=== PATIENT | male | born 1955 | race Caucasian/White ===

== ENCOUNTER 2018-01-02 19:54 | Inpatient (IN) | payer BC ==
[2018-01-02 21:24] LABS: ADD MAN DIFF? NO
[2018-01-02 21:25] LABS: ABNORMAL IP MESSAGE 1; BASOPHILS % 0.2 % (0.0-2.0); EOSINOPHILS # 0.4 10^3/ul (0.0-0.5); EOSINOPHILS % 1.8 % (0.0-7.0); HEMATOCRIT 24.5 % (42.0-52.0); HEMOGLOBIN 8.1 g/dl (14.0-18.0); LYMPHOCYTES # 1.2 10^3/ul (0.8-2.9); LYMPHOCYTES % 5.8 % (15.0-51.0); MEAN CORPUSCULAR HEMOGLOBIN 30.8 pg (29.0-33.0); MEAN CORPUSCULAR HGB CONC 33.1 g/dl (32.0-37.0); MEAN CORPUSCULAR VOLUME 93.2 fl (82.0-101.0); MEAN PLATELET VOLUME 9.2 fl (7.4-10.4); MONOCYTE # 2.1 10^3/ul (0.3-0.9); MONOCYTES % 10.3 % (0.0-11.0); NEUTROPHIL # 16.3 10^3/ul (1.6-7.5); NEUTROPHILS % 80.5 % (39.0-77.0); PLATELET COUNT 543 10^3/UL (140-415); POSITIVE DIFF @See below; RED BLOOD COUNT 2.63 10^6/ul (4.70-6.10); RED CELL DISTRIBUTION WIDTH 13.8 % (11.5-14.5)
[2018-01-02 21:25] LABS: WHITE BLOOD COUNT 20.2 10^3/ul (4.8-10.8)
[2018-01-02 21:27] LABS: ADD UMIC YES; UR ASCORBIC ACID 20 mg/dL (NEGATIVE); UR BACTERIA FEW /HPF (NONE SEEN); UR BILIRUBIN (Dip) NEGATIVE (NEGATIVE); UR BLOOD (Dip) 1+ mg/dL (NEGATIVE); UR CLARITY CLEAR (CLEAR); UR COLOR YELLOW (YELLOW); UR GLUCOSE (Dip) NEGATIVE (NEGATIVE); UR KETONES (Dip) NEGATIVE (NEGATIVE); UR LEUKOCYTE ESTERASE (Dip) NEGATIVE Leu/ul (NEGATIVE); UR NITRITE (Dip) NEGATIVE (NEGATIVE); UR RBC 1 /HPF (0-5); UR TOTAL PROTEIN (Dip) NEGATIVE (NEGATIVE); UR UROBILINOGEN (Dip) NEGATIVE (NEGATIVE); UR WBC 1 /HPF (0-5)
[2018-01-02 21:54] LABS: ALBUMIN/GLOBULIN RATIO 1.22; ANION GAP 15 (8-16)
[2018-01-02 21:55] LABS: ALANINE AMINOTRANSFERASE 37 IU/L (13-69); ALBUMIN 3.3 g/dl (3.3-4.9); ALKALINE PHOSPHATASE 139 IU/L (42-121); ASPARTATE AMINO TRANSFERASE 44 IU/L (15-46); BILIRUBIN,INDIRECT 0.1 mg/dl (0-1.1); BILIRUBIN,TOTAL 0.1 mg/dl (0.2-1.3); BLOOD UREA NITROGEN 25 mg/dl (7-20); CALCIUM 8.8 mg/dl (8.4-10.2); CARBON DIOXIDE 21 mmol/L (21-31); CHLORIDE 104 mmol/L (97-110); GLUCOSE 117 mg/dl (70-220); POTASSIUM 4.6 mmol/L (3.5-5.1); SODIUM 135 mmol/L (135-144)
[2018-01-02] MEDS: PIPER-TAZO 3.375 GM IV (PMX) 100 ML IVPB (22:53)
[2018-01-02] MEDS: VANCOMYCIN 1 GM (PMX) 250 ML IVPB (23:15)
[2018-01-02] MEDS: HYDROCODONE/APAP (5/325) TAB PO (23:24)
[2018-01-02] MEDS: SOD CHLORIDE 0.9% 250 ML IV* (23:42)
[2018-01-03] MEDS ORDERED: BISACODYL (EC) 5 MG TAB PO
[2018-01-03] MEDS ORDERED: NACL 0.9% 3 ML SYG IV
[2018-01-03] MEDS ORDERED: DOCUSATE SODIUM 100 MG CAP PO
[2018-01-03] MEDS ORDERED: VANCOMYCIN IV PER PHARMACY XX
[2018-01-03] MEDS ORDERED: ZOLPIDEM 5 MG TAB PO
[2018-01-03] MEDS ORDERED: ONDANSETRON 4 MG INJ IV
[2018-01-03 00:45] LABS: ADD MAN DIFF? NO
[2018-01-03 00:45] LABS: LACTIC ACID 0.8 mmol/L (0.5-2.0)
[2018-01-03 00:50] LABS: WHITE BLOOD COUNT 18.6 10^3/ul (4.8-10.8)
[2018-01-03 00:50] LABS: ABNORMAL IP MESSAGE 1; BASOPHILS % 0.2 % (0.0-2.0); EOSINOPHILS # 0.3 10^3/ul (0.0-0.5); EOSINOPHILS % 1.5 % (0.0-7.0); HEMATOCRIT 22.5 % (42.0-52.0); HEMOGLOBIN 7.5 g/dl (14.0-18.0); LYMPHOCYTES # 1.3 10^3/ul (0.8-2.9); LYMPHOCYTES % 7.1 % (15.0-51.0); MEAN CORPUSCULAR HEMOGLOBIN 30.7 pg (29.0-33.0); MEAN CORPUSCULAR HGB CONC 33.3 g/dl (32.0-37.0); MEAN CORPUSCULAR VOLUME 92.2 fl (82.0-101.0); MEAN PLATELET VOLUME 8.9 fl (7.4-10.4); MONOCYTE # 2.1 10^3/ul (0.3-0.9); MONOCYTES % 11.4 % (0.0-11.0); NEUTROPHIL # 14.6 10^3/ul (1.6-7.5); NEUTROPHILS % 78.6 % (39.0-77.0); PLATELET COUNT 499 10^3/UL (140-415); POSITIVE DIFF @See below; RED BLOOD COUNT 2.44 10^6/ul (4.70-6.10); RED CELL DISTRIBUTION WIDTH 13.7 % (11.5-14.5)
[2018-01-03 01:00] LABS: HEMOGLOBIN A1C 5.6 % (0-5.9)
[2018-01-03 01:01] LABS: OPIATES Negative (NEGATIVE)
[2018-01-03 01:02] LABS: GAMMA GLUTAMYL TRANSPEPTIDASE 43 IU/L (0-50)
[2018-01-03 01:02] LABS: AMPHETAMINE/METHAMPHETAMINE Negative (NEGATIVE)
[2018-01-03 01:03] LABS: BARBITURATES Negative (NEGATIVE); BENZODIAZEPINES Negative (NEGATIVE); CANNABINOIDS Negative (NEGATIVE); COCAINE Negative (NEGATIVE)
[2018-01-03 01:04] LABS: IRON 28 ug/dl (35-150)
[2018-01-03 01:06] LABS: ALANINE AMINOTRANSFERASE 35 IU/L (13-69); ALBUMIN 2.9 g/dl (3.3-4.9); ALKALINE PHOSPHATASE 118 IU/L (42-121); ANION GAP 13 (8-16); ASPARTATE AMINO TRANSFERASE 26 IU/L (15-46); BILIRUBIN,INDIRECT 0.2 mg/dl (0-1.1); BILIRUBIN,TOTAL 0.2 mg/dl (0.2-1.3); BLOOD UREA NITROGEN 23 mg/dl (7-20); CALCIUM 8.6 mg/dl (8.4-10.2); CARBON DIOXIDE 21 mmol/L (21-31); CHLORIDE 103 mmol/L (97-110); CHOL/HDL RATIO 3.4 RATIO; CHOLESTEROL 97 mg/dl (100-200); CREATININE 1.74 mg/dl (0.61-1.24); GLUCOSE 114 mg/dl (70-220); HDL CHOLESTEROL 28 mg/dl (30-78); LDL CHOLESTEROL,CALCULATED 54 mg/dl; MAGNESIUM 1.7 mg/dl (1.7-2.5); POTASSIUM 4.3 mmol/L (3.5-5.1); SODIUM 133 mmol/L (135-144); TOTAL PROTEIN 5.8 g/dl (6.1-8.1); TRIGLYCERIDES 75 mg/dl (0-149)
[2018-01-03 01:14] LABS: % IRON SATURATION 10 % SAT (22-52); TOTAL IRON BINDING CAPACITY 269 ug/dl (241-421)
[2018-01-03] MEDS: VANCOMYCIN 500MG/NS (PMX) 100 ML IVPB (02:23)
[2018-01-03] MEDS: ACETAMINOPHEN 325 MG TAB PO (02:24)
[2018-01-03] MEDS: FUROSEMIDE 40 MG INJ IV (02:24)
[2018-01-03] MEDS: PANTOPRAZOLE (EC) 40 MG TAB PO (05:21)
[2018-01-03] MEDS ORDERED: IMIPENEM-CILAST 500MG IV (PMX) 100 ML IVPB (06:00)
[2018-01-03] MEDS: MEROPENEM 1 GM/50ML(PMX) 50 ML IVPB ×2 (08:16→20:53)
[2018-01-03] MEDS: HYDROCODONE/APAP (5/325) TAB PO ×3 (08:19→23:51)
[2018-01-03] MEDS: LISINOPRIL 20 MG TAB PO (08:20)
[2018-01-03] MEDS: FAMOTIDINE 20 MG TAB PO (08:20)
[2018-01-03] MEDS: FOLIC ACID 1 MG TAB PO (08:20)
[2018-01-03 08:44] LABS: IMMEDIATE SPIN CROSSMATCH 1 2
[2018-01-03] MEDS: CLOTRIMAZOLE 1% 30 GM CR TOP ×2 (11:26→20:55)
[2018-01-03] MEDS: NICOTINE (14 MG/24 HR) PATCH TRANSDERM (16:36)
[2018-01-03] MEDS: VANCOMYCIN 1 GM 250 ML IVPB (22:08)
[2018-01-03] MEDS ORDERED: VANCOMYCIN 1.25 GM in SOD CHLORIDE 0.9% 250 ML IVPB (23:00)
[2018-01-04] MEDS: morphine 2 MG INJ IV ×2 (01:18→05:34)
[2018-01-04] MEDS: PANTOPRAZOLE (EC) 40 MG TAB PO (05:34)
[2018-01-04 05:52] LABS: ADD MAN DIFF? NO
[2018-01-04 06:04] LABS: ABNORMAL IP MESSAGE 1; BASOPHIL # 0.1 10^3/ul (0.0-0.1); BASOPHILS % 0.5 % (0.0-2.0); EOSINOPHILS # 0.3 10^3/ul (0.0-0.5); EOSINOPHILS % 2.2 % (0.0-7.0); HEMATOCRIT 29.7 % (42.0-52.0); HEMOGLOBIN 10.4 g/dl (14.0-18.0); LYMPHOCYTES # 1.5 10^3/ul (0.8-2.9); MEAN CORPUSCULAR HEMOGLOBIN 31.2 pg (29.0-33.0); MEAN CORPUSCULAR VOLUME 89.2 fl (82.0-101.0); MEAN PLATELET VOLUME 9.6 fl (7.4-10.4); MONOCYTE # 1.8 10^3/ul (0.3-0.9); MONOCYTES % 11.9 % (0.0-11.0); NEUTROPHIL # 11.2 10^3/ul (1.6-7.5); PLATELET COUNT 523 10^3/UL (140-415); POSITIVE DIFF @See below; RED BLOOD COUNT 3.33 10^6/ul (4.70-6.10); RED CELL DISTRIBUTION WIDTH 13.7 % (11.5-14.5)
[2018-01-04 06:04] LABS: WHITE BLOOD COUNT 15.3 10^3/ul (4.8-10.8)
[2018-01-04 06:46] LABS: ANION GAP 10 (8-16); BLOOD UREA NITROGEN 21 mg/dl (7-20); CALCIUM 8.6 mg/dl (8.4-10.2); CARBON DIOXIDE 25 mmol/L (21-31); CHLORIDE 105 mmol/L (97-110); CREATININE 1.58 mg/dl (0.61-1.24); GLUCOSE 102 mg/dl (70-220); POTASSIUM 4.1 mmol/L (3.5-5.1); SODIUM 136 mmol/L (135-144)
[2018-01-04] MEDS: FOLIC ACID 1 MG TAB PO (09:34)
[2018-01-04] MEDS: LISINOPRIL 20 MG TAB PO (09:34)
[2018-01-04] MEDS: FAMOTIDINE 20 MG TAB PO (09:34)
[2018-01-04] MEDS: MEROPENEM 1 GM/50ML(PMX) 50 ML IVPB (09:35)
[2018-01-04] MEDS: NICOTINE (14 MG/24 HR) PATCH TRANSDERM (09:35)
[2018-01-04] MEDS: CLOTRIMAZOLE 1% 30 GM CR TOP (09:36)
[2018-01-04] MEDS ORDERED: IPRATROPIUM (HFA) 12.9 GM INHALER INH (10:30)
[2018-01-04] MEDS ORDERED: LEVALBUTEROL (HFA) 15 GM INHALER INH (10:30)
[2018-01-04] MEDS: LEVOFLOXACIN 500 MG TAB PO (11:51)
[2018-01-04] MEDS: traMADol 50 MG TAB PO (14:00)
[2018-01-04] MEDS: ACETAMINOPHEN 325 MG TAB PO (17:49)
[2018-01-04] MEDS ORDERED: LACTULOSE 30ML CUP PO (21:00)
[2018-01-04] MEDS ORDERED: FERROUS SULFATE (EC) 325 MG TAB PO (21:00)
[2018-01-04] MEDS ORDERED: METOPROLOL 100 MG TAB PO (21:00)
[2018-01-05] MEDS ORDERED: THIAMINE 100 MG TAB PO (09:00)
[2018-01-05] MEDS ORDERED: ENOXAPARIN 30 MG/0.3 ML SYG SC (09:00)
== END 2018-01-04 20:38 | DRG 872 ==
LOC: PP2 23:37 → E/R 19:54
PROVIDERS: Hospitalist
PROC: 30233N1 Transfusion of Nonautologous Red Blood Cells into Peripheral Vein, Percutaneous Approach (ICD-10-PCS; principal; 2018-01-03)
DX: A41.9 Sepsis, unspecified organism (principal); N17.9 Acute kidney failure, unspecified; I11.9 Hypertensive heart disease without heart failure; I13.10 Hypertensive heart and chronic kidney disease without heart failure, with stage 1 through stage 4 chronic kidney disease, or unspecified chronic kidney disease; N45.3 Epididymo-orchitis; N18.9 Chronic kidney disease, unspecified; D64.9 Anemia, unspecified; F17.200 Nicotine dependence, unspecified, uncomplicated; Z96.642 Presence of left artificial hip joint
CPT/HCPCS: 36415; 36430; 74176; 76870; 80048; 80053; 80061; 80307; 81001; 82728; 82977; 83036; 83540; 83605; 83735; 84443; 85025; 86850; 86900; 86901; 86920; 87040; 87081; 87086; 96374; 96375; 96376; 97110; 97116; 97162; 97530; 99285-25